=== PATIENT | female | born 1960 | race Caucasian/White ===

== ENCOUNTER 2024-06-30 11:46 | Outpatient (CLI) | payer OTHER | END 2024-06-30 11:47 | disposition home or self-care (01) | LOC: BICRAD 11:46 | PROVIDERS: ATTEND Physician Assistant | DX: S13.4XXA Sprain of ligaments of cervical spine, initial encounter (principal); M25.532 Pain in left wrist; M25.531 Pain in right wrist; M54.50 Low back pain, unspecified; M47.812 Spondylosis without myelopathy or radiculopathy, cervical region; M47.816 Spondylosis without myelopathy or radiculopathy, lumbar region; M51.369 Other intervertebral disc degeneration, lumbar region without mention of lumbar back pain or lower extremity pain | CPT/HCPCS: 72040; 72100 ==

== ENCOUNTER 2024-07-21 12:42 | Outpatient (CLI) | payer OTHER | END 2024-07-21 12:43 | disposition home or self-care (01) | LOC: BICCT 12:42 | PROVIDERS: ATTEND Physician Assistant | DX: R51.9 Headache, unspecified (principal); M47.812 Spondylosis without myelopathy or radiculopathy, cervical region; Z98.1 Arthrodesis status; V89.2XXS Person injured in unspecified motor-vehicle accident, traffic, sequela | CPT/HCPCS: 70450; 72125 ==

== ENCOUNTER 2024-09-08 06:57 | Emergency (ER) | payer OTHER ==
[2024-09-08 08:16] LABS: Bacteria/HPF None Seen HPF (None Seen); Bilirubin Negative (Negative); Blood, Urine 1+ (Negative); CAUTI Indications for Culture Dysuria,urgency,freq; Clarity Clear (Clear); Glucose, Urine (Dipstick) Normal (Negative); Ketone, Urine Trace mg/dL (Negative); Leukocyte 500 Leu/uL (Negative); Nitrite Negative (Negative); Protein, Urine (Dipstick) 20 mg/dL (Neg-Trace); RBC/HPF 0-3 HPF (0-3); Specific Gravity, Urine 1.016 (1.002-1.036); Squamous Epithelial None Seen HPF (0-3)
[2024-09-08 08:23] LABS: Urine Culture Reflex No No
[2024-09-08] MEDS ORDERED: Ondansetron PF 4 MG/2 ML Vial ONE (08:30)
[2024-09-08] MEDS ORDERED: Dicyclomine 20 MG/2 ML VIAL ONE (08:30)
[2024-09-08 08:42] LABS: #Basophils 0.04 10x3/uL (0.0-0.2); %Basophils 0.3 % (0.0-1.0); %Eosinophils 0.3 % (0.0-10.0); %Lymphocytes 9.3 % (21.0-51.0); %Monocytes 8.5 % (0.0-10.0); %Neutrophils 81.3 % (42.0-75.0); Hematocrit 36.6 % (36.0-47.0); Hemoglobin 12.6 g/dL (12.0-16.0); Mean Corpuscular HGB CONC 34.4 g/dL (32.0-36.0); Mean Corpuscular Hemoglobin 30.1 pg (27.0-31.0); Mean Corpuscular Volume 87.4 fL (78.0-98.0); Mean Platelet Volume 10.1 fL (7.4-10.4); Platelet Count 315 10x3/uL (130-400); RBC Distribution Width 11.9 % (11.5-14.5); Red Blood Cell (RBC) Count 4.19 mill/uL (4.20-5.40)
[2024-09-08 09:02] LABS: ALT (SGPT) 21 U/L (8-55); AST (SGOT) 26 U/L (5-34); Albumin 3.2 g/dL (3.4-4.8); Alkaline Phosphatase 95 U/L (40-110); Anion Gap 16 mmol/L (10-20); BUN (Urea Nitrogen) 10 mg/dL (9.8-20.1); Bilirubin, Total 0.5 mg/dL (0.2-1.2); Calc. Creatinine Clearance 0 mL/min (70-130); Calcium 9.4 mg/dL (7.8-10.44); Carbon Dioxide 23 mmol/L (23-31); Chloride 102 mmol/L (98-107); Estimated GFR 96; Globulin 4.9 g/dL (2.4-3.5); Glucose 101 mg/dL (80-115); Lipase 10 U/L (8-78); Potassium 4.5 mmol/L (3.5-5.1); Protein, Total 8.1 g/dL (5.8-8.1); Sodium 136 mmol/L (136-145)
[2024-09-08] MEDS ORDERED: Amoxicillin/Potassium Clav 875 MG TAB ONE (10:58)
== END 2024-09-08 11:05 | disposition home or self-care (01) ==
LOC: ERS 06:57
DX: K57.32 Diverticulitis of large intestine without perforation or abscess without bleeding (principal); V49.9XXA Car occupant (driver) (passenger) injured in unspecified traffic accident, initial encounter
CPT/HCPCS: 74174; 80053; 81001; 83605; 83690; 85025; 87086; 93005; 94760; J2405; 36415; 96372; 96374